=== PATIENT | male | born 1970 | race African-American/Black ===

== ENCOUNTER 2024-07-04 01:55 | Inpatient (IN) | payer MEDICAID, SELFPAY ==
[2024-07-04 06:31] LABS: Lactic Acid Reflex 5.5 mmol/L (0.7-2.0)
[2024-07-04 06:32] LABS: Alanine Aminotransferase 23 U/L (6-50); Albumin Level 3.7 g/dL (3.5-5.1); Alkaline Phosphatase 63 U/L (38-126); Anion Gap 13 mmol/L (4-12); Aspartate Amino Transferase 25 U/L (17-59); Bilirubin,Total 0.3 mg/dL (0.2-1.3); Blood Urea Nitrogen 10 mg/dL (9-20); Calcium 8.3 mg/dL (8.4-10.2); Carbon Dioxide 21 mmol/L (22-30); Chloride 101 mmol/L (98-107); Creatine Kinase 125 U/L (55-170); Estimated Glomerular Filt Rate > 60; Glucose 106 mg/dL (65-110); NT Pro B Type Natriuretic Pept 62 pg/mL (19.9-100); Phosphorus 4.3 mg/dL (2.5-4.5); Potassium 4.9 mmol/L (3.4-5.0); Reflex Lactic Acid Yes or No Add Lactic; Sodium 135 mmol/L (137-145)
[2024-07-04 06:34] LABS: Troponin I 0.128 ng/mL (0.000-0.034)
[2024-07-04 06:42] LABS: Basophils Absolute Auto 0.1 K/mm3 (0.0-0.1); Basophils Percent Auto 0.5 % (0.2-1.2); Eosinophils Percent Auto 0.3 % (0-4.4); Hematocrit 43.9 % (42.0-52.0); Hemoglobin 14.4 g/dL (14.0-18.0); Immature Granulocyte Absolute 0.11 K/mm3 (0.00-0.031); Immature Granulocyte Percent A 0.7 % (0-0.5); Lymphocytes Absolute Auto 2.88 K/mm3 (0.9-3.2); Lymphocytes Percent Auto 18.9 % (18.3-44.2); Mean Corpuscular HGB Conc 32.8 g/dl (32-36); Mean Corpuscular Hemoglobin 32.1 pg (26-34); Monocytes Absolute Auto 0.7 K/mm3 (0.1-0.6); Monocytes Percent Auto 4.5 % (2.6-8.5); Neutrophils Absolute Auto 11.5 K/mm3 (1.3-6.7); Neutrophils Percent Auto 75.1 % (45.5-73.1); Platelet Count Result 285 k/mm3 (150-375); Red Blood Count 4.48 M/mm3 (4.6-6.20); Red Cell Distribution Width 12.1 % (11.5-14.5); White Blood Count 15.3 K/mm3 (4.5-10.0)
[2024-07-04 06:43] LABS: INR 1.1; Partial Thromboplastin Time 109.3 Seconds (22.3-36.8); Prothrombin Time 14.5 Seconds (11.1-14.7)
--- NOTE | 2024-07-04 07:54 | P.PNED_ITS ---
Subjective Date/time seen: 07/04/24 07:54 Interval history: Patient seen and evaluated during [facility] EMR down time, please see down time charting for further details including HPI, ROS, Exam, MDM, and Disposition. Objective Data Meds/Results Medications: Active Medications Generic Name Dose Route Start Last Admin Trade Name Freq PRN Reason Stop Dose Admin Heparin Sodium (Porcine) 2,500 units 07/04/24 07:02 Heparin Sodium 5,000 Units/Ml Vial IV PUSH PRN PRN aPTT 55 - 70 seconds Heparin Sodium (Porcine) 4,000 units 07/04/24 07:02 Heparin Sodium 5,000 Units/Ml Vial IV PUSH PRN PRN aPTT less than 55 seconds Heparin Sodium/Dextrose 25,000 units in 250 mls @ 8 mls/hr 07/04/24 02:00 Heparin Sodium/D5w 100 Units/Ml IV CONT .Q24H [facility] Protocol 800 UNITS/HR Labs Labs: Laboratory Results - last 24 hr 07/04/24 02:09 WBC 15.3 H RBC 4.48 L Hgb 14.4 Hct 43.9 MCV 98.0 MCH 32.1 MCHC 32.8 RDW 12.1 Plt Count 285 MPV 9.0 Immature Gran % (Auto) 0.7 H Neut % (Auto) 75.1 H Lymph % (Auto) 18.9 [place] % (Auto) 4.5 Eos % (Auto) 0.3 Baso % (Auto) 0.5 Lymph # (Auto) 2.88 [place] # (Auto) 0.7 H Eos # (Auto) 0.0 Baso # (Auto) 0.1 Abs Immat Gran (auto) 0.11 H Absolute Neuts (auto) 11.5 H Absolute Nucleated RBC 0.000 Nucleated RBC % 0.0 PT 14.5 INR 1.1 APTT 109.3 H Sodium 135 L Potassium 4.9 Chloride 101 Carbon Dioxide 21 L Anion Gap 13 H BUN 10 Creatinine 1.10 Estim Creat Clear Calc Not Reportable Estimated GFR > 60 Glucose 106 Lactic Acid 5.5 H* Calcium 8.3 L Phosphorus 4.3 Magnesium 2.0 Total Bilirubin 0.3 AST 25 ALT 23 Alkaline Phosphatase 63 Total Creatine Kinase 125 Troponin I 0.128 H* NT-Pro-B Natriuret Pep 62 Total Protein 7.0 Albumin 3.7
--- NOTE | 2024-07-09 11:23 | PM.IMHP ---
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 History is truncated because of the emergency. He reports no prior knowledge of cardiac problems and started to experience chest pain that awakened him from sleep in the middle of the night he describes this as a heavy weight like sensation in the substernal region without radiation. He presents to the emergency room by EMS and ECG in the field clearly indicates acute anterior current of injury. There is a prior history of hypertension no other known medical problems Review of Systems Review of Systems: ROS unobtainable: Yes unobtainable due to medical condition Exam Const: Other: Well-developed well-nourished black male who is in moderate distress with chest pain currently rating 8/10 in severity HENMT: Mouth: Yes moist mucous membranes Eyes: Sclera: sclerae normal Neck: Neck: supple and no JVD Resp: Effort & Inspection: normal respiratory effort Other: Bibasilar crackles are noted Cardio: Rate: regular rate Rhythm: regular rhythm Other: PMI is nondisplaced first and second heart sounds are normal no audible murmur S4 is evident GI: GI Palp: Yes Soft to palpation Auscultation: normal bowel sounds Skin: General skin exam: normal color Neuro: Other: Alert and oriented x3 Extrem: Other: Adequate perfusion, no pitting edema Assessment and Plan Assessment and plan (1) ST elevation (STEMI) myocardial infarction involving left anterior descending coronary artery: Code(s): I21.02 - ST elevation (STEMI) myocardial infarction involving left anterior descending coronary artery Status: Acute Plan This is a 53-year-old man with previous history of hypertension no other medical history is obtainable at this time during this emergency. He enters the hospital with chest pain this started in the middle of the night and clearly has acute anterior current of injury noted on ECG. He is being prepared for emergency angiography and revascularization at this time Mansoor Kong MD [facility]
--- NOTE | 2024-07-09 11:26 | P.PCNCC_ITS ---
Cardiac Cath Procedure Note Date of procedure:: 07/09/24 Performing physician:: Mansoor Kong MD Indication:: Acute anterior ST-elevation ID Brief clinical history:: This is a 53-year-old man without previous cardiac history who comes to the hospital in the middle of the night with chest pain that awakened him sleep and has acute anterior wall injury pattern on ECG Procedure Procedure performed:: Emergency coronary angiography Left ventriculography Attempted PCI of proximal/ostial LAD Sedation/Medication given:: No sedation Access site:: Right femoral artery Estimated blood loss:: 25 cc Procedure note:: The patient was brought to the cardiac catheterization lab in the emergency setting described above. The right femoral triangle was prepared and draped in the usual fashion. 1% lidocaine was infiltrated locally. Using the modified Seldinger technique a 6 [place] sheath was placed into the femoral artery and I then used a 6 [place] CLS 3.5 guiding catheter to engage the left main coronary artery. Angiography of the left coronary was then performed in multiple projections. Following this the patient was anticoagulated using a bolus and infusion of Angiomax. He received aspirin and 180 mg of Brilinta in the emergency department. Several guidewires including a 0.014 BMW, 0.014 towboat pilot 150 and 0.014 [place] were used to probe the occluded LAD without success in traversing the occlusion. Following this the right coronary artery was engaged and injected using a 5 [place] JR4 catheter the left ventricle was then studied using a 5 [place] angled pigtail catheter and left ventriculogram was performed in the CRESPO projection. 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 Findings:: Hemodynamics: Central aortic pressure is 105/80, left ventricle 105 over 10 end-diastolic 25 no gradient on pullback across the aortic valve Left ventricle: The LV is moderately dilated there is severe global hypokinesia noted with an ejection fraction I would visually estimated to be 20-25%. The anterior wall is frankly akinetic The left main coronary artery is medium in caliber and is patent The left anterior descending is 100% occluded at its ostium. This appears to be a flush occlusion at the left main there was no visible stump of the occluded LAD in any projection. Moderate amount of calcium can be seen in the proximal segment of the LAD. The circumflex gives rise to a very high proximal OM1 branch that is moderate size and has a proximal 90% stenosis. The remainder of the circumflex is free of disease. The right coronary artery is large in caliber and dominant to the posterior circulation. The RCA is angiographically smooth and free of disease. Intervention: As detailed above with the guiding catheter engaged in the left main the 3 guidewires that were used as detailed above were attempted to probe the ostial area of the LAD and I was unsuccessful in advancing any of these wires into the anterior descending so revascularization in the seed analysis laboratory assistant was not going to be feasible. Conclusion:: 1. Right coronary dominant circulation with acute anterior wall infarction due to 100% ostial flush occlusion of the left anterior descending. 2. 90% stenosis of the high 1st OM branch of the circumflex 3. Severe left ventricular systolic dysfunction 4. Patient requires emergency surgical revascularization as he has acute anterior injury and PCI is not successful Mansoor Kong MD [facility]
--- NOTE | 2024-07-09 11:32 | P.TS_ITS ---
Transfer Discharge Sum: Prov Provider Date of admission: 07/04/24 02:32 Primary care physician: UNKNOWN,DOCTOR Admitting clinician: Mansoor Kong MD Attending physician on admission: Mansoor Kong Attending physician on discharge: Mansoor Kong Discharging clinician: Mansoor Kong Anticipated date of transfer: 07/04/24 Receiving physician/facility: [facility], [place] DS: Admitting Diagnosis Discharge Date 07/04/24 Admitting Diagnosis Anterior ST-elevation [place] DS: Discharge Diagnosis Discharge Diagnosis (1) ST elevation (STEMI) myocardial infarction involving left anterior descending coronary artery: Code(s): I21.02 - ST elevation (STEMI) myocardial infarction involving left anterior descending coronary artery Status: Acute Assessment and Plan: 53-year-old gentleman with acute anterior wall myocardial infarction with 100% ostial occlusion of the LAD which was unable to be revascularized 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 He is being transferred to [facility] for emergency surgical revascularization Patient is in critical condition Plan Emergency coronary bypass graft Transfer Discharge Sum: Med Medications Active and Home Medications: No medications upon discharge medications to be determined following coronary bypass graft Transfer Discharge Sum: Hosp Hospital Course Hospital course: Aaron Harrington is a 53 year old male without previous cardiac history who presented to the hospital in the middle of the night with chest pain and obvious acute anterior injury pattern on his ECG. Emergency angiography demonstrated 100% ostial occlusion of the LAD at the distal left main and high-grade stenosis of 90% in the 1st obtuse marginal branch of the circumflex. Emergency PCI of the LAD was unsuccessful is no guidewire could be found that would advance through the ostial occlusion. The patient was transferred to [facility], [place] emergently and critically ill for emergency coronary bypass grafting Time Spent with Patient Time attestation: Total time spent providing and/or coordinating transfer services: Total time spent: Greater than 30 minutes Exam Const: Other: Critically ill 53-year-old man with moderate chest pain HENMT: Head: normal to inspection Face and sinus: normal facial exam Eyes: Sclera: sclerae normal Neck: Neck: supple and no JVD Resp: Effort & Inspection: normal respiratory effort Auscultation: rales bilateral at the base Cardio: Jugular venous distension: no JVD Rate: regular rate Rhythm: regular rhythm Heart sounds: S1 normal heart sound present, S2 normal heart sound present and Gallop heart sound present S4 gallop GI: Inspection: normal to inspection Extrem: General: normal to inspection
== END 2024-07-04 11:37 | disposition short-term general hospital (02) | DRG 190 ==
LOC: ANHED 06:56 → ANHICU 07-08 09:40
PROVIDERS: Admitting Provider Specialist; Emergency Provider Student in an Organized Health Care Education/Training Program; Visit Provider Specialist
PROC: 4A023N7 Measurement of Cardiac Sampling and Pressure, Left Heart, Percutaneous Approach (ICD-10-PCS; CPT 93452; principal; 2024-07-04 02:00)
PROC: 4A023N7 Measurement of Cardiac Sampling and Pressure, Left Heart, Percutaneous Approach (ICD-10-PCS; CPT 92920; 2024-07-04 02:00)
DX: I21.02 ST elevation (STEMI) myocardial infarction involving left anterior descending coronary artery (principal)
CPT/HCPCS: 36415; 80053; 82550; 83605; 83735; 83880; 84100; 84484; 85025; 85610; 85730; 92920; 93458; 96365; 96375; 99285; A9270; C1769; C1887; C1894; J0583; J1644; J2270; J3010; J7030; J7040